=== PATIENT | male | born 1960 | race Caucasian/White ===

== ENCOUNTER → 2016-10-30 | Emergency (ER) | payer SELFPAY ==
[~2016-10-30] VITALS: Ht 170.2 cm; Wt 90.9 kg
[~2016-10-30] MED LIST: BENZ-22 PO; NS IV 500 ML 500 ML IV SCH; SULF-221 PO
[2016-10-30 20:35] VITALS: BP 142/86
[2016-10-30 21:18] LABS: BASOPHILS % (AUTO) 1 % (0-2); EOSINOPHILS # (AUTO) 0.1 10^3uL; EOSINOPHILS % (AUTO) 2 % (0-4); LYMPHOCYTES # (AUTO) 0.8 X10^3; MEAN CORPUSCULAR HEMOGLOBIN 30.8 PG (26.0-34.0); MEAN CORPUSCULAR HGB CONC 34.4 g/dL (31.0-37.0); MEAN CORPUSCULAR VOLUME 90 FL (80-100); MEAN PLATELET VOLUME 10.7 FL (6.0-9.5); MONOCYTES # (AUTO) 0.6 X10^3; MONOCYTES % (AUTO) 11 % (3-11); NEUTROPHILS % (AUTO) 72 % (51-67); PLATELET COUNT 233 10^3uL (150-450); WHITE BLOOD COUNT 5.64 10^3uL (4.0-11.0)
[2016-10-30 21:20] LABS: CLARITY,URINE Clear; GLUCOSE, URINE (UA) Negative (Negative); LEUKOCYTE ESTERASE ,URINE Negative (Negative); PH,URINE 6.5 (5.0 - 8.0)
[2016-10-30 21:21] LABS: BILIRUBIN,URINE 2+ (Negative); COLOR,URINE Dark Yellow
[2016-10-30 21:30] LABS: ALBUMIN 4.1 g/dL (3.4-5.0); ANION GAP 14.8 MEQ/L (3-15); CALCULATED IONIZED CALCIUM 3.7 mg/dL (3.8-4.6); TOTAL PROTEIN 8.1 g/dL (6.4-8.5)
[2016-10-30 21:38] LABS: INFLUENZA VIRUS TYPE A ANTIBOD Negative (NEGATIVE); INFLUENZA VIRUS TYPE B ANTIBOD Negative (NEGATIVE)
--- NOTE | 2016-10-30 21:47 | Diagnostic Imaging Report ---
INDICATION: Cough. FINDINGS: The lungs are well-aerated. There are few small calcified granuloma. No infiltrates are present. There are multiple bridging osteophytes noted along the thoracic spine largest along the level of T7 and T8 noted on the lateral view. No parenchymal masses are demonstrated. No evidence of pulmonary edema. No hilar adenopathy is demonstrated. No pneumothorax or pleural effusion. IMPRESSION: No acute abnormalities demonstrated. Dictated by: Dictated on workstation # [id number]
--- NOTE | 2016-10-31 07:59 | Diagnostic Imaging Report ---
PROCEDURE: CT abdomen and pelvis with contrast. TECHNIQUE: Multiple contiguous axial images were obtained through the abdomen and pelvis after administration of intravenous contrast. INDICATION: Elevated liver enzymes. Body aches. Pruritus. COMPARISON: CT abdomen and pelvis without contrast 10/14/2008. FINDINGS: Subcentimeter low-attenuation nodule in the right hepatic lobe is too small to characterize, possible benign cyst. Splenule. Benign-appearing cyst in the right kidney. The gallbladder, pancreas, spleen, adrenals, left kidney, collecting systems and appendix are unremarkable. Small umbilical and left inguinal fat-containing hernias. No free intraperitoneal air/fluid, lymphadenopathy or evidence of bowel obstruction. Colonic diverticulosis without evidence of active diverticulitis. Prostatic calcifications. Compression fracture of the L1 vertebral body is new since the 2008 exam but is age-indeterminate. IMPRESSION: 1. No acute CT findings in the abdomen or pelvis 2. Subcentimeter low-attenuation nonenhancing nodule in the right hepatic lobe is indeterminate on this exam but may represent a benign cyst. Further evaluation with ultrasound may be useful if there is clinical concern. 3. Diverticulosis without evidence for active diverticulitis. 4. Age-indeterminate compression fracture of L1 vertebral body is new since 2008. Dictated by: Dictated on workstation # [id number]
[2016-10-31 14:13] LABS: HEPATITIS A ANTIBODY IGM Negative; HEPATITIS B CORE ABY IGM Negative; HEPATITIS B SURFACE ANTIGEN C Negative
== END | disposition home or self-care (01) ==
LOC: ED 20:28
DX: E80.6 Other disorders of bilirubin metabolism (principal); R53.83 Other fatigue; R53.81 Other malaise
CPT/HCPCS: 36415; 71020; 74177; 80053; 80074; 81003; 84443; 85025; 86140; 87400; 96360; 99284; J7040; Q9967; 87502; 96361; 99283

== ENCOUNTER → 2016-10-31 | Outpatient (REF) | payer SELFPAY | LOC: LAB 13:50 | PROVIDERS: ATTEND Family Medicine | DX: R17 Unspecified jaundice (principal) | CPT/HCPCS: 82140 ==

== ENCOUNTER → 2016-11-04 | Outpatient (CLI) | payer SELFPAY | LOC: RAD 07:14 | PROVIDERS: ATTEND Family Medicine | DX: R17 Unspecified jaundice (principal); K82.4 Cholesterolosis of gallbladder | CPT/HCPCS: 76705 ==